=== PATIENT | male | born 1990 | race Caucasian/White ===

== ENCOUNTER 2018-03-14 05:32 | Emergency (ER) | payer BC ==
--- NOTE | 2018-03-14 06:56 | EDM.PDOC ---
ED HPI GENERAL MEDICAL PROBLEM - General Chief Complaint: Lower Extremity Injury/Pain Stated Complaint: POSS DISLOCATED LEFT KNEE Time Seen by Provider: 03/14/18 06:12 Source of Information: Reports: Patient, RN Notes Reviewed - History of Present Illness INITIAL COMMENTS - FREE TEXT/NARRATIVE: 27-year-old male comes in with left knee pain. He was working out early this morning about an hour ago, was going to do some kicks at a punching bag and twisted the left knee. He felt discomfort medial aspect of knee. He did not hear a pop or crack. However he now does have discomfort medial aspect of knee with motion and with walking. He does have history of previous ACL repair about 6 years ago. Therefore he does have concern about further or repeat injury to the knee. Left Knee Pain Score (Numeric/FACES): 4 - Related Data Allergies Allergy/AdvReac Type Severity Reaction Status Date / Time No Known Allergies Allergy Verified 03/14/18 05:37 Home Meds: Home Meds . [No Known Home Meds] 03/14/18 [History] Past Medical History - Past Health History Medical/Surgical History: Denies Medical/Surgical History - Past Surgical History Musculoskeletal Surgical History: Reports: Arthroscopic Knee Social & Family History - Tobacco Use Smoking Status *Q: Never Smoker - Recreational Drug Use Recreational Drug Use: No Review of Systems - Review of Systems Review Of Systems: See Below Constitutional: Reports: No Symptoms Respiratory: Reports: No Symptoms Cardiovascular: Reports: No Symptoms GI/Abdominal: Denies: Nausea, Vomiting Musculoskeletal: Reports: Joint Pain (Medial aspect left knee) Skin: Reports: No Symptoms Neurological: Denies: Numbness, Tingling, Weakness ED EXAM, GENERAL - Physical Exam Exam: See Below General Appearance: Alert, No Apparent Distress Head: Atraumatic Neck: Supple Respiratory/Chest: No Respiratory Distress Extremities: Other (There is very mild tenderness of the medial aspect of the left knee, no swelling or effusion, knee joint is stable, there is no other area of tenderness.). No: Joint Swelling Neurological: No Motor/Sensory Deficits Skin Exam: Warm, Dry, Normal Color Course - Vital Signs Last Recorded V/S: Last Vital Signs Temp 98.0 F 03/14/18 05:38 Pulse 53 L 03/14/18 05:38 Resp 16 03/14/18 05:38 BP Pulse Ox 100 03/14/18 05:38 - Re-Assessments/Exams Free Text/Narrative Re-Assessment/Exam: 03/14/18 07:39 X-ray of the left knee is negative for fracture Departure - Departure Time of Disposition: 06:53 Disposition: Home, Self-Care 01 Clinical Impression: Knee sprain - Discharge Information Instructions: Knee Pain, Adult Referrals: PCP,None [Primary Care Provider] - Forms: ED Department Discharge, ED Return to Work/School Form Additional Instructions: Rest and elevate leg and knee as much as possible today, intermittent ice packs as needed for swelling, Advil or ibuprofen 2-3 times daily as needed for discomfort and inflammation, use knee brace that you have for support and protection. Follow-up with one of our local Orthopedist early next week. A list has been provided for your convenience. Call for next available appointment.
--- NOTE | 2018-03-14 07:25 | CR ---
Left knee: Four views of the left knee were obtained. Comparison: No previous study. Prior ACL repair is noted. Mild medial joint space narrowing is noted with minimal medial osteophytes. Lateral joint space is preserved. No joint effusion is seen. Nothing acute is identified. Impression: 1. Prior ACL repair. 2. 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 Diagnostic code #2
== END 2018-03-14 07:13 | disposition home or self-care (01) ==
LOC: JD.ED 05:32
DX: S83.92XA Sprain of unspecified site of left knee, initial encounter (principal); X50.1XXA Overexertion from prolonged static or awkward postures, initial encounter
CPT/HCPCS: 73564-26-LT; 73564-LT; 99283